=== PATIENT | male | born 1975 | race Caucasian/White ===

== ENCOUNTER 2018-04-01 14:05 | Emergency (ER) | payer BC ==
[2018-04-01 14:37] VITALS: RESP 18
--- NOTE | 2018-04-01 14:49 | ED ---
General Adult HPI - General Chief complaint: GI Bleed Stated complaint: Blood In stool Time Seen by Provider: 04/01/18 14:39 Source: patient, RN notes reviewed Mode of arrival: ambulatory Limitations: no limitations - History of Present Illness Initial comments: Patient 42-year-old male presented to the emergency room today with a chief complaint of seeing blood in the stool over the last 3 days. Patient does admit that he's had bowel movements last 3 days and had one in the toilet and on the paper. Patient does admit that he's had some cramping in his lower abdomen today. He denies any other complaints. States never had similar symptoms in the past. Patient denies any recent fever, chills, shortness of breath, chest pain, back pain, nausea or vomiting, numbness or tingling, dysuria or hematuria, constipation or diarrhea, headaches or visual changes, or any other complaints. - Related Data Home Medications Medication Instructions Recorded Confirmed No Known Home Medications [No 04/01/18 04/01/18 Known Home Medications] Allergies Allergy/AdvReac Type Severity Reaction Status Date / Time No Known Allergies Allergy Verified 04/01/18 15:15 Review of Systems ROS Statement: Those systems with pertinent positive or pertinent negative responses have been documented in the HPI. ROS Other: All systems not noted in ROS Statement are negative. Past Medical History Past Medical History: No Reported History History of Any Multi-Drug Resistant Organisms: None Reported Past Surgical History: Orthopedic Surgery Additional Past Surgical History / Comment(s): shoulder Past Psychological History: No Psychological Hx Reported Smoking Status: Never smoker Past Alcohol Use History: Occasional Past Drug Use History: None Reported General Exam - General Exam Comments Initial Comments: General: The patient is awake and alert, in no distress, and does not appear acutely ill. Eye: Pupils are equal, round and reactive to light, extra-ocular movements are intact. No nystagmus. There is normal conjunctiva bilaterally. No signs of icterus. Ears, nose, mouth and throat: There are moist mucous membranes and no oral lesions. Neck: The neck is supple, there is no tenderness or JVD. Cardiovascular: There is a regular rate and rhythm. No murmur, rub or gallop is appreciated. Respiratory: Lungs are clear to auscultation, respirations are non-labored, breath sounds are equal. No wheezes, stridor, rales, or rhonchi. Gastrointestinal: Abdomen soft on palpation. No tenderness. No rebound tenderness. No guarding Musculoskeletal: Normal ROM, no tenderness. Strength 5/5. Sensation intact. Neurological: A&O x 3. CN II-XII intact, There are no obvious motor or sensory deficits. Coordination appears grossly intact. Speech is normal. Skin: Skin is warm and dry and no rashes or lesions are noted. Psychiatric: Cooperative, appropriate mood & affect, normal judgment. Limitations: no limitations Course Vital Signs 04/01/18 14:34 Temperature 98.1 F Pulse Rate 61 Respiratory 18 Rate Blood Pressure 116/78 O2 Sat by Pulse 96 Oximetry Medical Decision Making - Medical Decision Making Patient reexamined at this time is currently sleeping. His abdomen soft nontender. Patient's labs been reviewed and does show positive occult. Patient 's random blood work is unremarkable. Was discussed with patient about further follow-up and to follow GI for further evaluation with colonoscopy. Patient advised return if symptoms increase worsen or for any other concerns. Patient states understanding and is in agreement. - Lab Data Result diagrams: 04/01/18 15:05 04/01/18 15:05 Lab Results 04/01/18 04/01/18 04/01/18 Range/Units 15:05 15:05 15:05 WBC 5.5 (3.8-10.6) k/uL RBC 4.88 (4.30-5.90) m/uL Hgb 15.7 (13.0-17.5) gm/dL Hct 44.2 (39.0-53.0) % MCV 90.7 (80.0-100.0) fL MCH 32.2 (25.0-35.0) pg MCHC 35.5 (31.0-37.0) g/dL RDW 12.4 (11.5-15.5) % Plt Count 160 (150-450) k/uL Neutrophils % 54 % Lymphocytes % 31 % Monocytes % 9 % Eosinophils % 4 % Basophils % 0 % Neutrophils # 2.9 (1.3-7.7) k/uL Lymphocytes # 1.7 (1.0-4.8) k/uL Monocytes # 0.5 (0-1.0) k/uL Eosinophils # 0.2 (0-0.7) k/uL Basophils # 0.0 (0-0.2) k/uL Sodium 143 (137-145) mmol/L Potassium 3.7 (3.5-5.1) mmol/L Chloride 104 (98-107) mmol/L Carbon Dioxide 27 (22-30) mmol/L Anion Gap 12 mmol/L BUN 21 H (9-20) mg/dL Creatinine 0.77 (0.66-1.25) mg/dL Est GFR (CKD-EPI)AfAm >90 (>60 ml/min/1.73 sqM) Est GFR (CKD-EPI)NonAf >90 (>60 ml/min/1.73 sqM) Glucose 88 (74-99) mg/dL Calcium 9.1 (8.4-10.2) mg/dL Total Bilirubin 0.7 (0.2-1.3) mg/dL AST 31 (17-59) U/L ALT 43 (21-72) U/L Alkaline Phosphatase 60 (38-126) U/L Total Protein 6.4 (6.3-8.2) g/dL Albumin 4.3 (3.5-5.0) g/dL Stool Occult Blood Positive (Negative) Disposition Clinical Impression: Blood in stool Disposition: HOME SELF-CARE Condition: Good Instructions: Gastrointestinal Bleeding (ED) Additional Instructions: Please follow-up with family doctor and GI specialist for further evaluation and colonoscopy as discussed. Please return for any other concerns. Is patient prescribed a controlled substance at d/c from ED?: No Referrals: Nicholas Gamble DO [Primary Care Provider] - 1-2 days Dunia Carranza MD [STAFF PHYSICIAN] - 1-2 days Time of Disposition: 15:53
[2018-04-01 15:15] LABS: Basophils % (A) 0 %; Eosinophils # (A) 0.2 k/uL (0-0.7); Eosinophils % (A) 4 %; HCT 44.2 % (39.0-53.0); HGB 15.7 gm/dL (13.0-17.5); Lymphocytes # (A) 1.7 k/uL (1.0-4.8); Lymphocytes % (A) 31 %; MCH 32.2 pg (25.0-35.0); MCHC 35.5 g/dL (31.0-37.0); MCV 90.7 fL (80.0-100.0); Mean Platelet Volume 7.1; Monocytes # (A) 0.5 k/uL (0-1.0); Monocytes % (A) 9 %; Neutrophils # (A) 2.9 k/uL (1.3-7.7); Neutrophils % (A) 54 %; Platelet Count 160 k/uL (150-450); RBC 4.88 m/uL (4.30-5.90); RDW 12.4 % (11.5-15.5); WBC 5.5 k/uL (3.8-10.6)
[2018-04-01 15:28] LABS: ALT 43 U/L (21-72); AST 31 U/L (17-59); Albumin 4.3 g/dL (3.5-5.0); Alkaline Phosphatase 60 U/L (38-126); Anion Gap 12 mmol/L; Blood Urea Nitrogen 21 mg/dL (9-20); Calcium 9.1 mg/dL (8.4-10.2); Carbon Dioxide 27 mmol/L (22-30); Chloride 104 mmol/L (98-107); Glucose 88 mg/dL (74-99); Potassium 3.7 mmol/L (3.5-5.1); Sodium 143 mmol/L (137-145); Total Bilirubin 0.7 mg/dL (0.2-1.3); Total Protein 6.4 g/dL (6.3-8.2)
[2018-04-01 16:13] VITALS: BP 124/72; PULSE 84; TEMP 98.2
== END 2018-04-01 16:11 | disposition home or self-care (01) ==
LOC: EC 14:05
DX: K92.1 Melena (principal); R10.30 Lower abdominal pain, unspecified
CPT/HCPCS: 36415; 80053; 82272; 85025; 99284

== ENCOUNTER 2018-11-09 21:42 | Emergency (ER) | payer BC ==
[2018-11-09] MEDS ORDERED: MORPHINE SULFATE 4 MG/ML SYRINGE IM STA (23:15)
[2018-11-09] MEDS ORDERED: DIAZEPAM 5 MG/ML 2 ML INJ IM ONE (23:15)
[2018-11-09] MEDS ORDERED: KETOROLAC 30 MG/ML 1 ML VIAL IM STA (23:15)
--- NOTE | 2018-11-09 23:56 | ED ---
Back Pain HPI - General Chief Complaint: Back Pain/Injury Stated Complaint: Low Back pain Time Seen by Provider: 11/09/18 23:09 Source: patient, family Limitations: physical limitation - History of Present Illness Initial Comments: 43-year-old male patient presents to the emergency department today for evaluation of left low back pain. Patient states pain started around 2 PM this afternoon after lifting heavy boxes of tile. Patient states that the pain radiates into the left leg. States it makes it very difficult for him to walk or move around. Patient states he has a constant low level of pain when he attempts to move the pain suddenly becomes worse. He did take ibuprofen and Flexeril at home, states did not help his symptoms. Patient denies any history of back pain or issues. Denies any saddle anesthesia, loss of bowel or bladder control, or numbness or tingling to the lower extremities. Denies any abdominal pain, nausea, or vomiting. Denies any fever. Patient denies any headache, neck pain, chest pain, shortness of breath, dizziness, weakness, or difficulties with bowel movements or urination. - Related Data Previous Rx's Medication Instructions Recorded Diazepam [Valium] 5 mg PO Q8HR PRN 3 Days #9 tab 11/10/18 Hydrocodone/Acetaminophen [Marana 1 tab PO Q6HR PRN #12 tab 11/10/18 5-325] Ibuprofen [Motrin] 600 mg PO Q8HR PRN #30 tab 11/10/18 Allergies Allergy/AdvReac Type Severity Reaction Status Date / Time No Known Allergies Allergy Verified 11/09/18 21:57 Review of Systems ROS Statement: Those systems with pertinent positive or pertinent negative responses have been documented in the HPI. ROS Other: All systems not noted in ROS Statement are negative. Past Medical History Past Medical History: No Reported History History of Any Multi-Drug Resistant Organisms: None Reported Past Surgical History: Orthopedic Surgery Additional Past Surgical History / Comment(s): shoulder Past Psychological History: No Psychological Hx Reported Smoking Status: Never smoker Past Alcohol Use History: Occasional Past Drug Use History: None Reported General Exam Limitations: physical limitation General appearance: alert, in no apparent distress, other (This is a well- developed, well-nourished adult male patient in no acute distress. Vital signs upon presentation are temperature 98.4F, pulse 69, respirations 18, blood pressure 110/70, pulse ox 97% on room air.) Eye exam: Present: normal appearance, PERRL, EOMI. Absent: scleral icterus, conjunctival injection, periorbital swelling Respiratory exam: Present: normal lung sounds bilaterally. Absent: respiratory distress, wheezes, rales, rhonchi, stridor Cardiovascular Exam: Present: regular rate, normal rhythm, normal heart sounds. Absent: systolic murmur, diastolic murmur, rubs, gallop, clicks GI/Abdominal exam: Present: soft, normal bowel sounds. Absent: distended, tenderness, guarding, rebound, rigid Extremities exam: Present: normal inspection, full ROM, normal capillary refill , other (Skin to the lower extremities is pink, warm, and dry. Cap refills less than 3 seconds. Pedal and posttibial pulses are 2+ and equal bilaterally.) . Absent: tenderness, pedal edema, joint swelling, calf tenderness Neurological exam: Present: alert, oriented X3, CN II-XII intact Psychiatric exam: Present: normal affect, normal mood Skin exam: Present: warm, dry, intact, normal color. Absent: rash Course Vital Signs 11/09/18 11/09/18 11/10/18 21:54 23:29 01:25 Temperature 98.4 F 97.9 F Pulse Rate 69 54 L 80 Respiratory 18 18 20 Rate Blood Pressure 110/70 113/72 98/80 O2 Sat by Pulse 97 96 98 Oximetry Medical Decision Making - Medical Decision Making 43-year-old male patient presents to the emergency department today for evaluation of low back pain with radiation down the left leg. Physical examination did reveal some muscle tenderness and spasm in the left lower back. Patient is neurologically intact with no focal deficits. CT lumbar spine was obtained and showed spinal stenosis and mild disc bulging at L4 to 5 and L5 to S1. Patient concerning symptoms for cauda equina. Patient did have mild improvement of symptoms after receiving pain medication here in the emergency department. He was able to sit on the edge of the bed and ambulate. He'll be discharged home with prescription for pain medication, muscle relaxer, anti- inflammatories. He is instructed to follow-up with his primary care physician for recheck in 1-2 days. Return parameters discussed in detail. He verbalizes understanding and agrees with this plan. - Radiology Data Radiology results: report reviewed, image reviewed CT lumbar sign without contrast was obtained. Report was reviewed in its entirety. Impression by Dr. Bhardwaj shows mild relative spinal stenosis at L3 to 4. No fracture. Normal disc spaces. There is minimal posterior disc bulging L4-L5 and L5-S1 without significant impingement on the spinal canal. Disposition Clinical Impression: Spasm of muscle of lower back, Bulging disc, Spinal stenosis Disposition: HOME SELF-CARE Condition: Good Instructions: Acute Low Back Pain (ED), Muscle Spasm (ED) Additional Instructions: Take medications as directed. Apply ice for the first 24 hours and switch to warm moist heat. Perform gentle range of motion and movement exercises. Follow -up with the nuclear medicine specialist if your symptoms do not improve. Follow-up with her primary care physician for recheck in 1-2 days. Return immediately for any new, worsening, or concerning symptoms per Prescriptions: Diazepam [Valium] 5 mg PO Q8HR PRN 3 Days #9 tab PRN Reason: Muscle Spasm Hydrocodone/Acetaminophen [Marana 5-325] 1 tab PO Q6HR PRN #12 tab PRN Reason: Pain Ibuprofen [Motrin] 600 mg PO Q8HR PRN #30 tab PRN Reason: Pain Is patient prescribed a controlled substance at d/c from ED?: No Referrals: Nicholas Gamble DO [Primary Care Provider] - 1-2 days Margaret Castellanos DO [Doctor of Osteopathic Medicine] - 1-2 days Time of Disposition: 01:00
--- NOTE | 2018-11-10 00:28 | CT ---
EXAMINATION TYPE: CT lumbar spine wo con DATE OF EXAM: 11/09/2018 11:55 PM COMPARISON: None HISTORY: Patient presens with lower back pain that radiates down left leg after lifting injury. CT DLP: 685.8 mGycm Automated exposure control for dose reduction was used. Unenhanced CT of the lumbar spine was performed. Bone and soft tissue window settings are submitted as well as coronal and sagittal reconstructions. The lumbar vertebra have normal spacing and alignment. Posterior elements are intact. Facet joints ar e intact. There is no lumbar paraspinal mass. Sacroiliac joints appear intact. The spinal canal is re latively small at L3-4 due to short pedicles and prominent facet joints. IMPRESSION: There is a mild relative spinal stenosis at L3-4. No fracture. Normal disc spaces. There is minimal p osterior disc bulging at L4-5 and L5-S1 without significant impingement on the spinal canal.
[2018-11-10] MEDS ORDERED: CYCLOBENZAPRINE 10MG STARTER 3 TAB BTL PO STA (01:00)
[2018-11-10] MEDS ORDERED: ACET/COD 300 MG/30 MG STARTER PACK 6 TAB BTL PO STA (01:00)
[2018-11-10] MEDS ORDERED: IBUPROFEN 600 MG STARTER PACK 4 TAB BTL PO STA (01:00)
[2018-11-10 01:27] VITALS: BP 98/80; PULSE 80; RESP 20; TEMP 97.9
== END 2018-11-10 01:27 | disposition home or self-care (01) ==
LOC: EC 21:42
DX: M48.061 Spinal stenosis, lumbar region without neurogenic claudication (principal); M51.26 Other intervertebral disc displacement, lumbar region; M51.27 Other intervertebral disc displacement, lumbosacral region; X50.0XXA Overexertion from strenuous movement or load, initial encounter
CPT/HCPCS: 72131; 99284; 96372 ×3; J2270; J3360; J1885

== ENCOUNTER → 2020-07-12 | Outpatient (CLI) | payer BC ==
--- NOTE | 2020-07-12 14:59 | US ---
EXAMINATION TYPE: US venous doppler duplex LE LT DATE OF EXAM: 07/12/2020 2:44 PM COMPARISON: NONE CLINICAL HISTORY: 45-year-old male I80.9 PHLEBITIS AND THROMBOPHLEBITIS. Bruising at left ankle follo wing hit with baseball on left batres in May SIDE PERFORMED: Left TECHNIQUE: The lower extremity deep venous system is examined utilizing real time linear array sonog jacques with graded compression, doppler sonography and color-flow sonography. FINDINGS: VESSELS IMAGED: External Iliac Vein (EIV) Common Femoral Vein Deep Femoral Vein Greater Saphenous Vein * Femoral Vein Popliteal Vein Small Saphenous Vein * Proximal Calf Veins (* superficial vessels) Left Leg: Negative for DVT IMPRESSION: No evidence for DVT within the left lower extremity imaged from the groin to the upper calf.
== END | disposition home or self-care (01) ==
LOC: RADUSWWP 14:10
PROVIDERS: ATTEND Orthopaedic Surgery
DX: M79.662 Pain in left lower leg (principal); I80.9 Phlebitis and thrombophlebitis of unspecified site